=== PATIENT | male | born 1980 | race Caucasian/White ===

== ENCOUNTER 2021-09-15 18:45 | Observation (INO) ==
[2021-09-15] MEDS ORDERED: ALUM/MAG/SIMETH/LIDO VISC 1:1 30 ML BOTTLE PO STA (19:06)
[2021-09-15] MEDS ORDERED: MORPHINE 2 MG/1 ML SYRINGE IV STA (19:06)
[2021-09-15] MEDS ORDERED: ASPIRIN 325 MG TABLET PO STA (19:06)
[2021-09-15] MEDS ORDERED: ONDANSETRON 4 MG/2 ML VIAL IV STA (19:06)
[2021-09-15] MEDS ORDERED: METOPROLOL TARTRATE 25 MG TABLET PO STA (19:06)
[2021-09-15] MEDS ORDERED: NITROGLYCERIN 2% OINT 1 INCH/GM PACK TOP STA (19:06)
[2021-09-15 19:21] LABS: Basophils # 0.1 10*3/uL (0.0-0.2); Basophils % 0.9 % (0.0-0.8); Eosinophils # 0.5 10*3/uL (0.0-0.87); Eosinophils % 5.1 % (0.00-10.9); Hematocrit 47.5 VOL% (42.0-52.0); Hemoglobin 15.5 GM/DL (14.0-18.0); Immature Granulocytes % 0.5 %; Immature Granulocytes Absolute 0.05 #; Lymphocytes # 2.7 10*3/uL (1.4-4.0); Lymphocytes % 26.1 % (21.2-54.2); Mean Corpuscular HGB Conc 32.6 GM/DL (32-36); Mean Corpuscular Volume 88.5 FL (87-102); Mean Platelet Volume 9.4 FL (9.6-12.0); Monocytes % 7.1 % (1.7-12.7); Neutrophils % 60.3 % (38.7-73.9); Platelet Count 282 T/CUMM (130-400); Red Blood Count 5.37 MC/CUMM (3.8-5.5); Red Cell Distribution Width 13.2 % (9.3-17.3); White Blood Count 10.2 T/CUMM (4-12)
[2021-09-15 19:42] LABS: Albumin 3.9 G/DL (3.4-5.0); Bilirubin,Total 0.4 MG/DL (0.20-1.00); Calcium 9.2 MG/DL (8.5-10.1); Osmolality,Calculated 273.8 MOS/KG (273-304); Potassium 3.8 MMOL/L (3.5-5.1); Total Protein 6.9 G/DL (6.4-8.2)
[2021-09-15 19:47] LABS: PT Patient Result 10.8 SECS (10.5-12.0)
[2021-09-15] MEDS ORDERED: ENOXAPARIN 100 MG/ML SYRINGE SUBCUT STA (19:55)
[2021-09-15 20:07] LABS: Barbiturates Screen,Urine Negative (Negative); Benzodiazepines Screen,Urine Negative (Negative); Cannabinoid Screen,Urine Negative (Negative); Opiate Screen,Urine Negative (Negative); Phencyclidine Screen,Urine Negative (Negative)
[2021-09-15] MEDS ORDERED: ENOXAPARIN 120 MG/0.8 ML SYRINGE SUBCUT STA (20:39)
[2021-09-15] MEDS ORDERED: ACETAMINOPHEN 325 MG TABLET PO PRN (20:58)
[2021-09-15] MEDS ORDERED: GLUCAGON 1 MG VIAL IM PRN (20:58)
[2021-09-15] MEDS ORDERED: ONDANSETRON 4 MG/2 ML VIAL IV PRN (20:58)
[2021-09-15] MEDS ORDERED: NICOTINE 21 MG/24 HR PATCH TRANSDERM PRN (21:04)
[2021-09-15] MEDS ORDERED: DEXTROSE 50% 25 GM/50 ML SYRINGE IV PRN (21:05)
[2021-09-15] MEDS ORDERED: MORPHINE 2 MG/1 ML SYRINGE IV PRN (21:48)
[2021-09-16] MEDS: NITROGLYCERIN 2% OINT 1 INCH/GM PACK TOP SCH ×3 (00:54→11:03)
[2021-09-16 01:38] LABS: Calcium 8.9 MG/DL (8.5-10.1); Osmolality,Calculated 278.5 MOS/KG (273-304); Potassium 4.3 MMOL/L (3.5-5.1); Risk Ratio 8.41; Thyroid Stimulating Hormone 1.08 uIU/ml (0.358-3.74)
[2021-09-16 08:44] VITALS: BP 120/73
[2021-09-16] MEDS ORDERED: ENOXAPARIN 120 MG/0.8 ML SYRINGE SUBCUT SCH (09:00)
[2021-09-16] MEDS ORDERED: PANTOPRAZOLE 40 MG TABLET PO SCH (09:00)
[2021-09-16] MEDS ORDERED: ESCITALOPRAM 10 MG TABLET PO SCH (09:00)
[2021-09-16] MEDS ORDERED: METOPROLOL TARTRATE 25 MG TABLET PO SCH (09:00)
[2021-09-16] MEDS ORDERED: ASPIRIN EC 325 MG TABLET PO SCH (09:00)
[2021-09-16] MEDS ORDERED: ROSUVASTATIN 20 MG TABLET PO SCH (10:30)
[2021-09-16] MEDS ORDERED: ATORVASTATIN 40 MG TABLET PO SCH (21:00)
[2021-09-16] MEDS ORDERED: ENOXAPARIN 40 MG/0.4 ML SYRINGE SUBCUT SCH (21:00)
[2021-09-17] MEDS ORDERED: ASPIRIN EC 81 MG TABLET PO SCH (09:00)
== END 2021-09-16 11:29 | disposition home or self-care (01) ==
LOC: N.EDINP 18:45 → N.ED 18:45 → N.TELEN 21:22
PROVIDERS: ADMIT Internal Medicine; ATTEND Internal Medicine